=== PATIENT | male | born 1965 | race African-American/Black ===

== ENCOUNTER 2017-10-15 15:32 | Emergency (ER) | payer SELFPAY ==
[~2017-10-15] VITALS: Ht 185.4 cm; Wt 72.7 kg
[~2017-10-15 15:32] MED LIST: AMOXICILLIN 50500 MG PO; NO HOME MEDICATIONS; NORCO 325 MG-51 TAB PO; NORCO 325 MG-7.1 TAB PO; PEN-VEE K500 MG PO
[2017-10-15 15:37] VITALS: BP 117/65; TEMP 98.1
[2017-10-15] MEDS ORDERED: ATARAX 25MG25 MG/TAB PO (16:45)
[2017-10-15] MEDS ORDERED: TRIAM OI 15 0.025 TOP (16:45)
[2017-10-15 17:30] VITALS: PULSE 64
[2017-10-15 18:03] LABS: HIV 1/2 Antibodies Non-Reactive; HIV-1p24 Antigen Non-Reactive
== END 2017-10-15 17:31 | disposition home or self-care (01) ==
LOC: COL.ER 15:32
PROVIDERS: Physician Assistant
DX: L29.9 Pruritus, unspecified (principal); F17.210 Nicotine dependence, cigarettes, uncomplicated
CPT/HCPCS: J0561

== ENCOUNTER 2017-10-23 11:11 | Emergency (ER) | payer SELFPAY ==
[~2017-10-23] VITALS: Ht 185.4 cm; Wt 72.7 kg
[~2017-10-23 11:11] MED LIST changes: +ATARAX 25MG25 MG/TAB PO; +TRIAM OI 15 0.025 TOP
[2017-10-23 11:14] VITALS: BP 122/77; PULSE 69; TEMP 97.9
[2017-10-23] MEDS ORDERED: TRIAMCINOLONE A15 G2 TP (11:53)
[2017-10-23] MEDS ORDERED: GENTAMICIN EYE D5 ML OU (11:53)
== END 2017-10-23 11:58 | disposition home or self-care (01) ==
LOC: COL.ER 11:11
DX: H10.9 Unspecified conjunctivitis (principal); F17.210 Nicotine dependence, cigarettes, uncomplicated

== ENCOUNTER 2017-11-29 00:27 | Emergency (ER) | payer SELFPAY ==
[~2017-11-29] VITALS: Ht 185.4 cm; Wt 72.7 kg
[~2017-11-29 00:27] MED LIST changes: +GENTAMICIN EYE D5 ML OU; +TRIAMCINOLONE A15 G2 TP
[2017-11-29 00:29] VITALS: TEMP 97.8
[2017-11-29] MEDS ORDERED: IBU600 MG PO (00:53)
[2017-11-29] MEDS ORDERED: AMOXICILLIN 50500 MG PO (00:53)
[2017-11-29 01:02] VITALS: BP 107/67; PULSE 61
== END 2017-11-29 01:04 | disposition home or self-care (01) ==
LOC: COL.ER 00:27
DX: K02.9 Dental caries, unspecified (principal)

== ENCOUNTER 2018-06-27 14:14 | Emergency (ER) | payer SELFPAY ==
[~2018-06-27] VITALS: Ht 185.4 cm; Wt 72.7 kg
[~2018-06-27 14:14] MED LIST changes: +IBU600 MG PO
[2018-06-27 14:23] VITALS: BP 110/69; TEMP 98.3
[2018-06-27] MEDS ORDERED: NORCO 325 MG-7.1 TAB PO (16:08)
[2018-06-27] MEDS ORDERED: AMOXICILLIN 50500 MG PO (16:08)
[2018-06-27 16:11] VITALS: PULSE 78
[2018-06-28] MEDS ORDERED: MOTRIN 800800 MG/TAB PO (16:22)
== END 2018-06-27 16:12 | disposition home or self-care (01) ==
LOC: COL.ER 14:14
DX: K02.9 Dental caries, unspecified (principal); F17.210 Nicotine dependence, cigarettes, uncomplicated

== ENCOUNTER 2018-06-28 14:40 | Emergency (ER) | payer SELFPAY ==
[~2018-06-28] VITALS: Ht 185.4 cm; Wt 72.7 kg
[2018-06-28 14:46] VITALS: BP 128/70; TEMP 99.5
[2018-06-28] MEDS ORDERED: MOTRIN 800800 MG/TAB PO (16:22)
[2018-06-28 16:33] VITALS: PULSE 90
== END 2018-06-28 16:33 | disposition home or self-care (01) ==
LOC: COL.ER 14:40
DX: K02.9 Dental caries, unspecified (principal); K05.30 Chronic periodontitis, unspecified; F17.210 Nicotine dependence, cigarettes, uncomplicated

== ENCOUNTER 2018-10-08 17:38 | Emergency (ER) | payer SELFPAY ==
[~2018-10-08] VITALS: Ht 185.4 cm; Wt 72.7 kg
[~2018-10-08 17:38] MED LIST changes: +MOTRIN 800800 MG/TAB PO
[2018-10-08 17:46] VITALS: BP 116/65; TEMP 97.4
[2018-10-08] MEDS ORDERED: NORCO 325 MG-51 TAB PO (18:24)
[2018-10-08] MEDS ORDERED: AMOXICILLIN875 MG PO (18:24)
[2018-10-08 19:19] VITALS: PULSE 70
== END 2018-10-08 19:21 | disposition home or self-care (01) ==
LOC: COL.ER 17:38
DX: K02.9 Dental caries, unspecified (principal)

== ENCOUNTER 2018-12-20 14:26 | Emergency (ER) | payer SELFPAY ==
[~2018-12-20] VITALS: Ht 185.4 cm; Wt 68.2 kg
[~2018-12-20 14:26] MED LIST changes: +AMOXICILLIN875 MG PO
[2018-12-20 14:29] VITALS: BP 110/62; TEMP 97.4
[2018-12-20] MEDS ORDERED: TRIAMCINOLONE A15 G1 TP (14:50)
[2018-12-20] MEDS ORDERED: ZYRTEC 10MG10 MG PO (14:50)
[2018-12-20 15:20] VITALS: PULSE 67
== END 2018-12-20 15:21 | disposition home or self-care (01) ==
LOC: COL.ER 14:26
DX: L30.8 Other specified dermatitis (principal); F17.290 Nicotine dependence, other tobacco product, uncomplicated

== ENCOUNTER 2019-06-05 15:39 | Emergency (ER) | payer SELFPAY ==
[~2019-06-05] VITALS: Ht 193 cm; Wt 71.0 kg
[~2019-06-05 15:39] MED LIST changes: +TRIAMCINOLONE A15 G1 TP; +ZYRTEC 10MG10 MG PO
[2019-06-05 15:56] VITALS: BP 98/66; PULSE 89; TEMP 98.6
== END 2019-06-05 16:59 | disposition left against medical advice (07) ==
LOC: COL.ER 15:39
DX: H61.23 Impacted cerumen, bilateral (principal); F17.210 Nicotine dependence, cigarettes, uncomplicated

== ENCOUNTER 2019-06-05 17:05 | Emergency (ER) | payer SELFPAY ==
[~2019-06-05] VITALS: Ht 185.4 cm; Wt 70.9 kg
[2019-06-05 17:09] VITALS: BP 117/74; TEMP 97.9
[2019-06-05 18:38] VITALS: PULSE 78
== END 2019-06-05 18:38 | disposition home or self-care (01) ==
LOC: COL.ER 17:05
DX: H61.23 Impacted cerumen, bilateral (principal); F17.210 Nicotine dependence, cigarettes, uncomplicated